=== PATIENT | male | born 1990 | race Hispanic/Latino ===

== ENCOUNTER 2019-03-28 21:20 | Emergency (ER) | payer OTHER ==
[~2019-03-28] VITALS: Ht 185.4 cm; Wt 95.0 kg
[2019-03-28 21:21] VITALS: BP 138/81
--- NOTE | 2019-03-28 22:25 | REP ---
Clinical: Trauma/injury. Technique: AP, lateral, bilateral oblique views of the left hand. Findings: No acute fracture or dislocation. Skeletal structures, joint spaces, and surrounding soft tissues appear normal. No subcutaneous emphysema or radiodense foreign body. Impression: No acute fracture or dislocation appreciated. Electronically Signed by Landen Villar MD 03/28/2019 10:18 P
== END 2019-03-28 23:15 | disposition home or self-care (01) ==
LOC: M ED 21:20
DX: S63.602A Unspecified sprain of left thumb, initial encounter (principal); X50.1XXA Overexertion from prolonged static or awkward postures, initial encounter; Y92.098 Other place in other non-institutional residence as the place of occurrence of the external cause; F17.210 Nicotine dependence, cigarettes, uncomplicated